=== PATIENT | female | born 2000 | race Caucasian/White ===

== ENCOUNTER 2020-03-04 13:36 | Outpatient (CLI) | payer BC ==
--- NOTE | 2020-03-04 14:43 | RAD ---
Exam: Lumbar spine 2 views COMPARISON: 01/22/2020 HISTORY: Redemonstration mild to moderate compression fracture at L1, mild compression fracture at L2 and L3. Stable loss of vertebral body height and stable mild retropulsion. IMPRESSION: No significant change.
== END 2020-03-04 13:37 | disposition home or self-care (01) ==
LOC: TBSIIMAG 13:36
PROVIDERS: ATTEND Physician Assistant
DX: M48.56XA Collapsed vertebra, not elsewhere classified, lumbar region, initial encounter for fracture (principal); M54.5 Low back pain
CPT/HCPCS: 72100